=== PATIENT | male | born 1955 | race Caucasian/White ===

== ENCOUNTER 2016-08-27 00:34 | Inpatient (IN) | payer OTHER ==
[~2016-08-27] VITALS: Ht 188 cm; Wt 89.1 kg
[~2016-08-27 00:34] MED LIST: ALEVE220 MG PO; ASPIR 8181 MG PO; CORDARONE 200M200 MG PO; COREG 3.125M3.125 MG PO; ENTRESTO PO; FUROSEMIDE20 MG PO; GLUCOTROL5 MG PO; HYDRALAZINE HCL10 MG PO; ISOSORBIDE MONO30 MG PO; LANTUS100 UNIT/1 SQ; LASIX 40 MG TAB40 MG PO; LEVAQUIN500 MG PO; LORTAB 10-3251 EACH PO; LORTAB 5-325 M1 EACH PO; NITROSTAT 0.40.4 MG SL; PRIMIDONE50 MG PO; SIMVASTATIN10 MG PO; SYNTHROID25 MCG PO; VITAMIN D250000 UNIT PO
[2016-08-27 02:55] LABS: HEMOGLOBIN 13.7 gm/dl (14.0-17.5); RED BLOOD COUNT 4.3 M/UL (4.20-5.50); WHITE BLOOD COUNT 6.2 K/UL (4.5-11.0)
[2016-08-27] MEDS ORDERED: MYSOLINE TAB 5050 MG PO (12:19)
[2016-08-27] MEDS ORDERED: SPIRIVA18 MCG INH (12:20)
[2016-08-27] MEDS ORDERED: SERTRALINE HCL50 MG PO (12:20)
[2016-08-27] MEDS ORDERED: COUMADIN2 MG PO (12:21)
[2016-08-27] MEDS ORDERED: DULERA 100 MCG8.8 GM INH (12:21)
[2016-08-27] MEDS ORDERED: SENNA8.6 MG PO (12:21)
[2016-08-28 04:46] LABS: HEMOGLOBIN 11.5 gm/dl (14.0-17.5); RED BLOOD COUNT 3.67 M/UL (4.20-5.50); WHITE BLOOD COUNT 4.6 K/UL (4.5-11.0)
[2016-08-29 04:35] LABS: HEMOGLOBIN 11.6 gm/dl (14.0-17.5); RED BLOOD COUNT 3.65 M/UL (4.20-5.50); WHITE BLOOD COUNT 3.7 K/UL (4.5-11.0)
[2016-08-29 04:52] LABS: BUN/CREATININE RATIO 23 (0-10)
[2016-08-31 04:27] LABS: BUN/CREATININE RATIO 17 (0-10)
[2016-09-01 06:11] LABS: BUN/CREATININE RATIO 16 (0-10)
[2016-09-02 07:18] LABS: HEMOGLOBIN 12.5 gm/dl (14.0-17.5); RED BLOOD COUNT 4.02 M/UL (4.20-5.50); WHITE BLOOD COUNT 4.9 K/UL (4.5-11.0)
[2016-09-02 07:37] LABS: BUN/CREATININE RATIO 21 (0-10)
[2016-09-03 15:23] LABS: RED BLOOD COUNT 3.81 M/UL (4.20-5.50)
[2016-09-03 15:25] LABS: WHITE BLOOD COUNT 8.2 K/UL (4.5-11.0)
[2016-09-03 15:40] LABS: BUN/CREATININE RATIO 19 (0-10)
[2016-09-04 04:52] LABS: HEMOGLOBIN 11.8 gm/dl (14.0-17.5); RED BLOOD COUNT 3.78 M/UL (4.20-5.50); WHITE BLOOD COUNT 4.5 K/UL (4.5-11.0)
[2016-09-04 05:14] LABS: BUN/CREATININE RATIO 22 (0-10)
[2016-09-05 05:15] LABS: BUN/CREATININE RATIO 20 (0-10)
[2016-09-06 07:51] LABS: BUN/CREATININE RATIO 21 (0-10)
== END 2016-09-06 18:35 | DRG 291 ==
LOC: ER1 00:34 → MED SURG 4 07:18 → ZEROF 07:18 → MED SURG 4 10:06
PROVIDERS: Internal Medicine; Physician Assistant; ADMIT Internal Medicine
DX: I13.0 Hypertensive heart and chronic kidney disease with heart failure and stage 1 through stage 4 chronic kidney disease, or unspecified chronic kidney disease (principal); I50.23 Acute on chronic systolic (congestive) heart failure; J96.01 Acute respiratory failure with hypoxia; E11.22 Type 2 diabetes mellitus with diabetic chronic kidney disease; N18.3 Chronic kidney disease, stage 3 (moderate); Z87.891 Personal history of nicotine dependence; Z79.4 Long term (current) use of insulin; Z86.718 Personal history of other venous thrombosis and embolism; Z79.01 Long term (current) use of anticoagulants; I48.0 Paroxysmal atrial fibrillation; I42.0 Dilated cardiomyopathy; K80.20 Calculus of gallbladder without cholecystitis without obstruction; M71.162 Other infective bursitis, left knee; I44.7 Left bundle-branch block, unspecified
CPT/HCPCS: ECHO; 36415; 36600; 71010; 71020; 73130; 76705; 80048; 80053; 80202; 82570; 82803; 82962; 83036; 83605; 83690; 83735; 83880; 84156; 84484; 85025; 85027; 85610; 85730; 93005; 93306; 94640; 94660; 94664; 96361; 96374; 96375; 97110; 97116; 97530; 99285; J1650; J1940; J2270; J2405; J2930; J3370; J7050; J7070; Q0162; Q9962

== ENCOUNTER 2016-09-27 11:47 | Emergency (ER) | payer OTHER ==
[~2016-09-27 11:47] MED LIST changes: +COUMADIN2 MG PO; +DULERA 100 MCG8.8 GM INH; +MYSOLINE TAB 5050 MG PO; +SENNA8.6 MG PO; +SERTRALINE HCL50 MG PO; +SPIRIVA18 MCG INH
[2016-09-27 13:17] LABS: HEMOGLOBIN 13.6 gm/dl (14.0-17.5); RED BLOOD COUNT 4.39 M/UL (4.20-5.50); WHITE BLOOD COUNT 5.6 K/UL (4.5-11.0)
[2016-09-27 15:51] LABS: BUN/CREATININE RATIO 15 (0-10)
== END 2016-09-27 19:40 | disposition home or self-care (01) ==
LOC: ER1 11:47
PROVIDERS: Family Medicine
DX: J44.9 Chronic obstructive pulmonary disease, unspecified (principal); E11.9 Type 2 diabetes mellitus without complications; K21.9 Gastro-esophageal reflux disease without esophagitis; N18.9 Chronic kidney disease, unspecified; I11.9 Hypertensive heart disease without heart failure; I50.9 Heart failure, unspecified; Z88.5 Allergy status to narcotic agent; Z95.810 Presence of automatic (implantable) cardiac defibrillator
CPT/HCPCS: 36415; 71010; 80053; 82550; 82553; 83874; 83880; 84484; 85025; 85610; 85730; 93005; 99285

== ENCOUNTER 2016-10-02 16:13 | Inpatient (IN) | payer OTHER ==
[~2016-10-02] VITALS: Ht 188 cm; Wt 88.6 kg
[2016-10-02 16:45] LABS: HEMOGLOBIN 13.6 gm/dl (14.0-17.5); RED BLOOD COUNT 4.42 M/UL (4.20-5.50); WHITE BLOOD COUNT 6.5 K/UL (4.5-11.0)
[2016-10-02 17:23] LABS: BUN/CREATININE RATIO 14 (0-10)
[2016-10-03] MEDS ORDERED: MIRALAX17 GM PO (00:28)
[2016-10-03] MEDS ORDERED: BUMETANIDE2 MG PO (00:28)
[2016-10-03] MEDS ORDERED: KEFLEX CAP 500500 MG PO (00:29)
[2016-10-03] MEDS ORDERED: BREO ELLIPTA 11 EACH INH (00:30)
[2016-10-03] MEDS ORDERED: COLACE 100MG C100 MG PO (00:31)
[2016-10-03] MEDS ORDERED: IPRAT-ALBUT 0.5-3 ML INH (00:34)
[2016-10-03] MEDS ORDERED: LANTUS100 UNIT/1 SQ (00:35)
[2016-10-03 05:02] LABS: HEMOGLOBIN 12.7 gm/dl (14.0-17.5); RED BLOOD COUNT 4.17 M/UL (4.20-5.50); WHITE BLOOD COUNT 4.9 K/UL (4.5-11.0)
[2016-10-03 05:22] LABS: BUN/CREATININE RATIO 12 (0-10)
[2016-10-04 05:35] LABS: BUN/CREATININE RATIO 15 (0-10)
[2016-10-05 06:42] LABS: HEMOGLOBIN 12.8 gm/dl (14.0-17.5); RED BLOOD COUNT 4.14 M/UL (4.20-5.50); WHITE BLOOD COUNT 5.2 K/UL (4.5-11.0)
[2016-10-05 07:04] LABS: BUN/CREATININE RATIO 12 (0-10)
[2016-10-06 04:11] LABS: BUN/CREATININE RATIO 16 (0-10)
[2016-10-07 04:42] LABS: HEMOGLOBIN 11.8 gm/dl (14.0-17.5)
[2016-10-07 05:05] LABS: BUN/CREATININE RATIO 14 (0-10)
[2016-10-10 03:46] LABS: HEMOGLOBIN 12.7 gm/dl (14.0-17.5); RED BLOOD COUNT 4.19 M/UL (4.20-5.50); WHITE BLOOD COUNT 5.3 K/UL (4.5-11.0)
[2016-10-10 04:04] LABS: BUN/CREATININE RATIO 15 (0-10)
[2016-10-11] MEDS ORDERED: ALDACTONE25 MG PO (10:32)
[2016-10-11] MEDS ORDERED: ZAROXOLYN/DIUL2.5 MG PO (10:32)
== END 2016-10-11 16:48 | disposition home health service (06) | DRG 291 ==
LOC: ER1 16:13 → MED SURG 4 20:21 → ZEROF 20:21 → MED SURG 4 23:31
PROVIDERS: Family Medicine; Internal Medicine; Physician Assistant; ADMIT Internal Medicine
DX: I13.0 Hypertensive heart and chronic kidney disease with heart failure and stage 1 through stage 4 chronic kidney disease, or unspecified chronic kidney disease (principal); I50.23 Acute on chronic systolic (congestive) heart failure; J96.01 Acute respiratory failure with hypoxia; N18.3 Chronic kidney disease, stage 3 (moderate); K80.20 Calculus of gallbladder without cholecystitis without obstruction; E11.22 Type 2 diabetes mellitus with diabetic chronic kidney disease; F41.9 Anxiety disorder, unspecified; E03.9 Hypothyroidism, unspecified; J44.9 Chronic obstructive pulmonary disease, unspecified; D64.9 Anemia, unspecified; I25.10 Atherosclerotic heart disease of native coronary artery without angina pectoris; I42.0 Dilated cardiomyopathy; Z86.718 Personal history of other venous thrombosis and embolism; Z86.711 Personal history of pulmonary embolism; Z87.891 Personal history of nicotine dependence; Z82.49 Family history of ischemic heart disease and other diseases of the circulatory system; Z79.4 Long term (current) use of insulin; Z79.891 Long term (current) use of opiate analgesic; Z95.810 Presence of automatic (implantable) cardiac defibrillator
CPT/HCPCS: 36415; 36600; 70450; 71010; 72131; 78227; 80048; 80053; 82550; 82553; 82803; 82962; 83605; 83735; 83874; 83880; 84100; 84484; 85014; 85018; 85025; 85027; 85610; 85730; 92610; 93005; 93925; 94640; 94664; 96374; 96375; 97110; 97116; 97530; 97535; 99285; A9537; J1650; J1940; J2405; J2805; Q0162

== ENCOUNTER 2021-01-31 03:04 | Inpatient (IN) | payer MEDICARE ==
[~2021-01-31] VITALS: Ht 188 cm; Wt 87.7 kg
[~2021-01-31 03:04] MED LIST changes: +ALDACTONE25 MG PO; +BREO ELLIPTA 11 EACH INH; +BUMETANIDE1 MG PO; +COLACE 100MG C100 MG PO; +IPRAT-ALBUT 0.5-3 ML INH; +KEFLEX CAP 500500 MG PO; +MIRALAX17 GM PO; +SERTRALINE HCL100 MG PO; -SERTRALINE HCL50 MG PO; +SYNTHROID100 MCG PO; -SYNTHROID25 MCG PO; +ZAROXOLYN/DIUL2.5 MG PO
[2021-01-31 03:24] LABS: HEMOGLOBIN 16.4 gm/dl (14.0-17.5); RED BLOOD COUNT 5.08 M/UL (4.20-5.50); WHITE BLOOD COUNT 9.3 K/UL (4.5-11.0)
[2021-01-31] MEDS ORDERED: JANTOVEN1 MG PO ×3 (09:21→10:42)
[2021-01-31] MEDS ORDERED: ATORVASTATIN CA10 MG PO (10:21)
[2021-01-31] MEDS ORDERED: AMIODARONE HCL200 MG PO (10:21)
[2021-01-31] MEDS ORDERED: ENTRESTO 97 MG1 EACH PO (10:25)
[2021-01-31] MEDS ORDERED: GLIPIZIDE5 MG PO (10:27)
[2021-01-31] MEDS ORDERED: FAMOTIDINE20 MG PO (10:30)
[2021-01-31] MEDS ORDERED: IBUPROFEN200 MG PO (10:30)
[2021-01-31] MEDS ORDERED: METOPROLOL SUC100 MG PO (10:32)
[2021-01-31] MEDS ORDERED: PRIMIDONE50 MG PO ×2 (10:35→10:38)
[2021-01-31] MEDS ORDERED: JARDIANCE10 MG PO (10:38)
[2021-01-31] MEDS ORDERED: VITAMIN D21250 MCG PO (10:39)
--- NOTE | 2021-02-01 11:58 | NUR ---
AT APPROX 11AM PATIENT HEART RATE 180. MATY LANGLEY FOR CARDIOLOGY INSTRUCTED TO START AMIODARONE DRIP. PATIENT RATE IN THE 90'S. DR DAVIS SPOKE WITH PT PACER CO, [employer] COUNTER PERSON CAME BY TO ADJUST RATE. PATIENT TOLERATING AMIODARONE DRIP WELL. WILL CONTINUE TO MONITOR.
[2021-02-02 03:00] LABS: HEMOGLOBIN 16.4 gm/dl (14.0-17.5); RED BLOOD COUNT 5.05 M/UL (4.20-5.50); WHITE BLOOD COUNT 7.6 K/UL (4.5-11.0)
[2021-02-03 04:15] LABS: HEMOGLOBIN 16.1 gm/dl (14.0-17.5); RED BLOOD COUNT 4.92 M/UL (4.20-5.50)
[2021-02-03] MEDS ORDERED: BUMETANIDE1 MG PO (09:20)
[2021-02-03] MEDS ORDERED: PREDNISONE10 MG PO (09:20)
[2021-02-03] MEDS ORDERED: AUGMENTIN 875-1 EACH PO (09:20)
[2021-02-03] MEDS ORDERED: AMIODARONE HCL200 MG PO (09:20)
[2021-02-03] MEDS ORDERED: IPRAT-ALBUT 0.5-3 ML NEB (09:20)
--- NOTE | 2021-02-03 15:28 | NUR ---
pt 02 84 % on room air
== END 2021-02-03 16:15 | disposition home or self-care (01) | DRG 193 ==
LOC: ER1 03:04 → CDU 04:47 → PROG CARE 04:47
PROVIDERS: Internal Medicine; ADMIT Internal Medicine
DX: J18.9 Pneumonia, unspecified organism (principal); I50.23 Acute on chronic systolic (congestive) heart failure; J96.21 Acute and chronic respiratory failure with hypoxia; J96.22 Acute and chronic respiratory failure with hypercapnia; I13.0 Hypertensive heart and chronic kidney disease with heart failure and stage 1 through stage 4 chronic kidney disease, or unspecified chronic kidney disease; J44.1 Chronic obstructive pulmonary disease with (acute) exacerbation; E44.0 Moderate protein-calorie malnutrition; N17.9 Acute kidney failure, unspecified; I47.1 Supraventricular tachycardia; J44.0 Chronic obstructive pulmonary disease with (acute) lower respiratory infection; I42.0 Dilated cardiomyopathy; Z20.822 Contact with and (suspected) exposure to COVID-19; I49.3 Ventricular premature depolarization; N18.9 Chronic kidney disease, unspecified; F41.8 Other specified anxiety disorders; E11.22 Type 2 diabetes mellitus with diabetic chronic kidney disease; G25.0 Essential tremor; E03.9 Hypothyroidism, unspecified; G20 Parkinson's disease; Z86.718 Personal history of other venous thrombosis and embolism; Z95.810 Presence of automatic (implantable) cardiac defibrillator; Z87.891 Personal history of nicotine dependence; Z98.890 Other specified postprocedural states; Z83.3 Family history of diabetes mellitus; Z79.01 Long term (current) use of anticoagulants; Z79.899 Other long term (current) drug therapy
CPT/HCPCS: ECHO; 36415; 36600; 71045; 80048; 80053; 82550; 82553; 82803; 82962; 83605; 83735; 83874; 83880; 84100; 84132; 84439; 84443; 84484; 85025; 85610; 85730; 86140; 87040; 93005; 93306; 94640; 94664; 94760; 96374; 97116-GP-CQ; 97161; 99285; C9113; J0692; J0696; J1940; J2920; J2930; U0002

== ENCOUNTER 2021-05-24 19:46 | Inpatient (IN) | payer MEDICARE ==
[~2021-05-24] VITALS: Ht 188 cm; Wt 96.6 kg
[~2021-05-24 19:46] MED LIST changes: +AMIODARONE HCL200 MG PO; +AUGMENTIN 875-1 EACH PO; +ENTRESTO 97 MG1 EACH PO; +IBUPROFEN200 MG PO; +IPRAT-ALBUT 0.5-3 ML NEB; +JANTOVEN1 MG PO; +METOPROLOL SUC100 MG PO; +PREDNISONE10 MG PO; +VITAMIN D21250 MCG PO
[2021-05-24 20:05] LABS: HEMOGLOBIN 16.3 gm/dl (14.0-17.5); RED BLOOD COUNT 5.06 M/UL (4.20-5.50); WHITE BLOOD COUNT 6.6 K/UL (4.5-11.0)
[2021-05-25] MEDS ORDERED: LANTUS SOL100 UNIT/1 INJ (00:35)
[2021-05-25 04:13] LABS: HEMOGLOBIN 14.7 gm/dl (14.0-17.5); RED BLOOD COUNT 4.64 M/UL (4.20-5.50); WHITE BLOOD COUNT 6.1 K/UL (4.5-11.0)
[2021-05-25] MEDS ORDERED: ATORVASTATIN CA10 MG PO (10:21)
[2021-05-25] MEDS ORDERED: GLIPIZIDE5 MG PO (10:27)
[2021-05-25] MEDS ORDERED: ELIQUIS5 MG PO (10:30)
[2021-05-25] MEDS ORDERED: PROAIR DIGIHAL90 MCG INH (10:30)
[2021-05-25] MEDS ORDERED: FAMOTIDINE20 MG PO (10:30)
[2021-05-25] MEDS ORDERED: JARDIANCE10 MG PO (10:38)
[2021-05-25] MEDS ORDERED: PRIMIDONE50 MG PO (10:38)
[2021-05-25 18:47] LABS: HEMOGLOBIN 16.2 gm/dl (14.0-17.5); RED BLOOD COUNT 5.09 M/UL (4.20-5.50); WHITE BLOOD COUNT 7.2 K/UL (4.5-11.0)
--- NOTE | 2021-05-25 19:04 | NUR ---
05/25/21 190 REPORT CALLED TO [facility] TO BE TRANSFERRED TO ROOM 4105
--- NOTE | 2021-05-25 19:25 | NUR ---
PT TRANSFERRED TO ROOM 4108 ON 4LNC VIA RESOURCE RN. PT STABLE AT THE TIME OF TRANSFER.
[2021-05-25 23:00] LABS: ACINETOBACTER BAUMANNII Not Detected (Negative); CANDIDA ALBICANS Not Detected (Negative); CANDIDA KRUSEI Not Detected (Negative); CANDIDA TROPICALIS Not Detected (Negative); ENTEROCOCCUS Not Detected (Negative); ESCHERICHIA COLI Not Detected (Negative); HAEMOPHILUS INFLUENZAE Not Detected (Negative); KLEBSIELLA OXYTOCA Not Detected (Negative); KLEBSIELLA PNEUMONIAE Not Detected (Negative); KPC-CARBAPENEM-RESISTANCE GENE Not Detected (Negative); PROTEUS Not Detected (Negative); PSEUDOMONAS AERUGINOSA Not Detected (Negative); SERRATIA MARCESANS Not Detected (Negative); STAPHYLOCOCCUS AUREUS Not Detected (Negative); STREP AGALACTIAE (GROUP B) Not Detected (Negative); STREP PYOGENES (GROUP A) Not Detected (Negative); STREPTOCOCCUS Not Detected (Negative); vanA/B (VANCOMYCIN RESIST GENE Not Detected (Negative)
[2021-05-26 00:22] LABS: STAPHYLOCOCCUS DETECTED (Negative); mecA (METHICILLIN RESIST GENE DETECTED (Negative)
[2021-05-26 07:01] LABS: HEMOGLOBIN 14.8 gm/dl (14.0-17.5); RED BLOOD COUNT 4.82 M/UL (4.20-5.50); WHITE BLOOD COUNT 5.9 K/UL (4.5-11.0)
[2021-05-26 15:05] LABS: BODY FLUID SOURCE PLEURAL; MONONUCLEAR CELLS 79.9 (75-100); POLYMORPHONUCLEAR % 20.1 (0-25); RBC (AUTOMATED) 200 (0-100000); WBC (AUTOMATED) 219 (0-500)
[2021-05-26 15:48] LABS: LDH, BODY FLUID 63 U/L; TOTAL PROTEIN, BODY FLUID 2.5 gm/dL
--- NOTE | 2021-05-26 19:20 | NUR ---
1750 Patient requested to sit on side of bed to eat dinner, blood noted under patient. Bleeding had come from Thoracentesis site. No active bleeding noted at this time. Pressure dressing applied to site. Dr Archibald & Dr Perez informed, both came to patient's room to assess patient. New orders noted for chest xray, CBC, PT with INR & PTT. Patient alert, oriented, no c/o voiced. at bedside.
[2021-05-27 04:08] LABS: HEMOGLOBIN 15.3 gm/dl (14.0-17.5); RED BLOOD COUNT 4.86 M/UL (4.20-5.50); WHITE BLOOD COUNT 6.6 K/UL (4.5-11.0)
[2021-05-28 06:03] LABS: HEMOGLOBIN 14.7 gm/dl (14.0-17.5); RED BLOOD COUNT 4.73 M/UL (4.20-5.50); WHITE BLOOD COUNT 6.8 K/UL (4.5-11.0)
[2021-05-29 04:46] LABS: HEMOGLOBIN 14.8 gm/dl (14.0-17.5); RED BLOOD COUNT 4.74 M/UL (4.20-5.50)
[2021-05-30 05:26] LABS: HEMOGLOBIN 13.2 gm/dl (14.0-17.5); RED BLOOD COUNT 4.27 M/UL (4.20-5.50)
[2021-05-30 05:38] LABS: WHITE BLOOD COUNT 3.6 K/UL (4.5-11.0)
== END 2021-05-30 12:41 | disposition home or self-care (01) | DRG 291 ==
LOC: ER1 19:46 → CDU 22:21 → 3 EAST 05-25 15:41 → MED SURG 4 05-25 19:28
PROVIDERS: Internal Medicine; Physician Assistant; Physician Assistant Medical; Student in an Organized Health Care Education/Training Program; ADMIT Internal Medicine
PROC: B24BZZZ Ultrasonography of Heart with Aorta (ICD-10-PCS; principal; 2021-05-26)
PROC: 0W993ZZ Drainage of Right Pleural Cavity, Percutaneous Approach (ICD-10-PCS; 2021-05-27)
DX: I13.0 Hypertensive heart and chronic kidney disease with heart failure and stage 1 through stage 4 chronic kidney disease, or unspecified chronic kidney disease (principal); I50.23 Acute on chronic systolic (congestive) heart failure; J96.21 Acute and chronic respiratory failure with hypoxia; J90 Pleural effusion, not elsewhere classified; J98.11 Atelectasis; Z20.822 Contact with and (suspected) exposure to COVID-19; I42.0 Dilated cardiomyopathy; R53.81 Other malaise; G20 Parkinson's disease; B95.7 Other staphylococcus as the cause of diseases classified elsewhere; J44.9 Chronic obstructive pulmonary disease, unspecified; F41.9 Anxiety disorder, unspecified; F32.A Depression, unspecified; E78.5 Hyperlipidemia, unspecified; E03.9 Hypothyroidism, unspecified; G25.0 Essential tremor; M10.9 Gout, unspecified; K21.9 Gastro-esophageal reflux disease without esophagitis; N18.30 Chronic kidney disease, stage 3 unspecified; E11.22 Type 2 diabetes mellitus with diabetic chronic kidney disease; I27.20 Pulmonary hypertension, unspecified; Z86.718 Personal history of other venous thrombosis and embolism; Z95.810 Presence of automatic (implantable) cardiac defibrillator; Z99.81 Dependence on supplemental oxygen; Z98.890 Other specified postprocedural states; Z82.49 Family history of ischemic heart disease and other diseases of the circulatory system; Z83.3 Family history of diabetes mellitus; Z87.891 Personal history of nicotine dependence; Z88.8 Allergy status to other drugs, medicaments and biological substances; Z79.01 Long term (current) use of anticoagulants; Z79.899 Other long term (current) drug therapy
CPT/HCPCS: ECHO; 36415; 36600; 71045; 80048; 80202; 82550; 82553; 82803; 82945; 82962; 83605; 83615; 83735; 83880; 83986; 84157; 84484; 85014; 85018; 85025; 85027; 85610; 85730; 87040; 87070; 87077; 87150; 87186; 87205; 89051; 93005; 93306; 93925; 94640; 94664; 94760; 97161; 97530-GP-CQ; 99285; G0378; J1644; J1940; J3370; J7030; J7070; Q9967; U0002

== ENCOUNTER 2021-06-21 17:57 | Inpatient (IN) | payer MEDICARE ==
[~2021-06-21] VITALS: Ht 188 cm; Wt 88.6 kg
[~2021-06-21 17:57] MED LIST changes: +ATORVASTATIN CA10 MG PO; +ELIQUIS5 MG PO; +FAMOTIDINE20 MG PO; +GLIPIZIDE5 MG PO; +JARDIANCE10 MG PO; +LANTUS SOL100 UNIT/1 SQ; +PROAIR DIGIHAL90 MCG INH
[2021-06-21 20:55] LABS: HEMOGLOBIN 14.2 gm/dl (14.0-17.5); RED BLOOD COUNT 4.67 M/UL (4.20-5.50); WHITE BLOOD COUNT 6.3 K/UL (4.5-11.0)
[2021-06-22 02:07] LABS: HEMOGLOBIN 14.1 gm/dl (14.0-17.5); RED BLOOD COUNT 4.68 M/UL (4.20-5.50); WHITE BLOOD COUNT 5.5 K/UL (4.5-11.0)
[2021-06-22] MEDS ORDERED: BUMETANIDE1 MG PO (09:50)
[2021-06-23 02:47] LABS: HEMOGLOBIN 15.1 gm/dl (14.0-17.5); RED BLOOD COUNT 5.07 M/UL (4.20-5.50); WHITE BLOOD COUNT 5.4 K/UL (4.5-11.0)
[2021-06-24 07:17] LABS: HEMOGLOBIN 14.2 gm/dl (14.0-17.5); RED BLOOD COUNT 4.8 M/UL (4.20-5.50); WHITE BLOOD COUNT 5.6 K/UL (4.5-11.0)
--- NOTE | 2021-06-24 10:22 | NUR ---
06/24/[address] CARDONA HERE, RIGHT THORACENTESIS STARTED AT THIS TIME POST TIME OUT. PATIENT IS ALERT/ORIENTED, AWARE OF RISKS/BENEFITS EXPLAINED PER MD. PT IN UPRIGHT POSITION ON BEDSIDE WITH ARMS OVER BSD TABLE, SITE CLEANED, DRAPED PER MD. VITAL SIGNS REMAIN STABLE THROUGH PROCEDURE. PT REMAINED ALERT/ORIENTED DURING PROCEDURE. 2.5L PLEURAL REMOVED VIA RIGHT THORACENTESIS. PRESSURE DRESSING APPLIED AT 0839 PER MD. SPECIMAN SAMPLE SENT TO LAB PER MD ORDERS. PT DENIES SOA, PAIN ETC. AT BSD.
[2021-06-24 11:08] LABS: LDH, BODY FLUID 83 U/L; TOTAL PROTEIN, BODY FLUID 3.2 gm/dL
[2021-06-25 04:03] LABS: HEMOGLOBIN 13.9 gm/dl (14.0-17.5); RED BLOOD COUNT 4.59 M/UL (4.20-5.50); WHITE BLOOD COUNT 4.6 K/UL (4.5-11.0)
[2021-06-26 03:11] LABS: HEMOGLOBIN 13.5 gm/dl (14.0-17.5); RED BLOOD COUNT 4.5 M/UL (4.20-5.50); WHITE BLOOD COUNT 4.9 K/UL (4.5-11.0)
[2021-06-27 06:09] LABS: HEMOGLOBIN 14.3 gm/dl (14.0-17.5); RED BLOOD COUNT 4.73 M/UL (4.20-5.50); WHITE BLOOD COUNT 4.7 K/UL (4.5-11.0)
[2021-06-28 06:54] LABS: HEMOGLOBIN 14.1 gm/dl (14.0-17.5); RED BLOOD COUNT 4.78 M/UL (4.20-5.50)
[2021-06-28 07:00] LABS: WHITE BLOOD COUNT 6.8 K/UL (4.5-11.0)
[2021-06-29 06:48] LABS: HEMOGLOBIN 13.2 gm/dl (14.0-17.5); RED BLOOD COUNT 4.44 M/UL (4.20-5.50)
[2021-06-29] MEDS ORDERED: BUMETANIDE1 MG PO (10:26)
[2021-06-29] MEDS ORDERED: ENTRESTO 24 MG1 EACH PO (10:26)
[2021-06-29] MEDS ORDERED: LOPRESSOR 25 MG25 MG PO (10:26)
[2021-06-29] MEDS ORDERED: ACETAZOLAMIDE250 MG PO (10:26)
--- NOTE | 2021-06-29 13:16 | NUR ---
CALLED REPORT TO [facility] WHERE PT IS ALREADY ESTABLISHED
== END 2021-06-29 13:16 | disposition home or self-care (01) | DRG 291 ==
LOC: MED SURG 4 17:57 → PROG CARE 17:57 → MED SURG 4 06-24 14:39
PROVIDERS: Internal Medicine; ADMIT Internal Medicine
PROC: 5A09457 Assistance with Respiratory Ventilation, 24-96 Consecutive Hours, Continuous Positive Airway Pressure (ICD-10-PCS; 2021-06-21)
PROC: 0W993ZZ Drainage of Right Pleural Cavity, Percutaneous Approach (ICD-10-PCS; principal; 2021-06-24)
PROC: 5A09357 Assistance with Respiratory Ventilation, Less than 24 Consecutive Hours, Continuous Positive Airway Pressure (ICD-10-PCS; 2021-06-24)
DX: I13.0 Hypertensive heart and chronic kidney disease with heart failure and stage 1 through stage 4 chronic kidney disease, or unspecified chronic kidney disease (principal); J96.21 Acute and chronic respiratory failure with hypoxia; I50.23 Acute on chronic systolic (congestive) heart failure; J96.22 Acute and chronic respiratory failure with hypercapnia; J90 Pleural effusion, not elsewhere classified; I47.2 Ventricular tachycardia; I48.20 Chronic atrial fibrillation, unspecified; E87.2 Acidosis; G89.29 Other chronic pain; Z66 Do not resuscitate; Z20.822 Contact with and (suspected) exposure to COVID-19; I42.8 Other cardiomyopathies; E03.9 Hypothyroidism, unspecified; E78.5 Hyperlipidemia, unspecified; R53.81 Other malaise; N18.30 Chronic kidney disease, stage 3 unspecified; E11.22 Type 2 diabetes mellitus with diabetic chronic kidney disease; I27.20 Pulmonary hypertension, unspecified; R53.82 Chronic fatigue, unspecified; I49.3 Ventricular premature depolarization; R74.01 Elevation of levels of liver transaminase levels; K21.9 Gastro-esophageal reflux disease without esophagitis; M54.9 Dorsalgia, unspecified; J44.9 Chronic obstructive pulmonary disease, unspecified; G25.0 Essential tremor; M81.0 Age-related osteoporosis without current pathological fracture; Z86.718 Personal history of other venous thrombosis and embolism; Z87.891 Personal history of nicotine dependence; Z83.3 Family history of diabetes mellitus; Z88.5 Allergy status to narcotic agent; Z88.8 Allergy status to other drugs, medicaments and biological substances; Z95.810 Presence of automatic (implantable) cardiac defibrillator; Z91.81 History of falling; Z79.899 Other long term (current) drug therapy; Z79.4 Long term (current) use of insulin; Z79.01 Long term (current) use of anticoagulants
CPT/HCPCS: 36415; 36600; 71045; 71250; 80048; 80053; 81001; 82533; 82550; 82553; 82803; 82962; 83036; 83605; 83615; 83735; 83880; 84100; 84157; 84439; 84443; 84484; 85025; 85027; 85610; 85730; 86140; 87070; 87081; 87205; 89051; 93005; 94640; 94660; 94760; 97110; 97116-GP-CQ; 97162; 97166; 97530; 97530-GP-CQ; C1729; J1160; J1205; J1940; U0002

== ENCOUNTER → 2021-07-18 | Outpatient (CLI) | payer MEDICARE ==
[~2021-07-18] MED LIST changes: +ACETAZOLAMIDE250 MG PO; +ENTRESTO 24 MG1 EACH PO; +LOPRESSOR 25 MG25 MG PO
== END ==
LOC: EXRD 14:31
DX: J90 Pleural effusion, not elsewhere classified (principal); R91.8 Other nonspecific abnormal finding of lung field
CPT/HCPCS: 71046